=== PATIENT | male | born 1955 | race Caucasian/White ===

== ENCOUNTER 2018-01-19 07:45 | Day surgery (SDC) | payer BC, SELFPAY ==
--- NOTE | 2018-01-19 | PATH_ITS ---
[facility] Accession Number: [id number] . 01 Material submitted: . RECTAL POLYP . 02 Diagnosis: Rectum, Polyp, Biopsy: Benign lymphoid aggregate. I/01/20/2018 . 02 Electronically signed: . Lina Dominguez MD, Pathologist NPI- [id number] . 01 Gross description: . Received one formalin-filled container labeled with the patient's name, labeled rectal polyp. The specimen consists of a 0.3 cm portion of tissue, entirely submitted in one cassette. ([id number]) /FRR . 02 Pathologist provided ICD-10: K63.5 . 02 CPT . 557692 Performed at: 01 [facility] [address] [id number] MD uYri Roger MD Phone: [phone] Performed at: 02 [facility] [place] [address] [place], [place] [id number] MD Tom Sung MD Phone: [phone]
[2018-01-19 08:30] VITALS: BP 153/87; PULSE 59; RESP 16; TEMP 36.5; O2SAT 96; BMI 31.1
[2018-01-19] MEDS: SODIUM CHLORIDE 0.9% 1,000 ML 42 ML IV (08:44)
--- NOTE | 2018-01-19 09:20 | SUR.OPER ---
to endo from opd via cart respiration unlabored iv patent positioned per self for procedure
--- NOTE | 2018-01-19 09:26 | PM.CN ---
History of Present Illness Date Patient Seen: 01/19/18 Time Patient Seen: 09:27 Chief complaint: [id number] Reason for consult: Screening and history of polyps Requesting provider: Kervin Albright Narrative: Patient is a 62-year-old male with a history of polyps due for follow-up colonoscopy. He has no GI history. [facility] Social History household members: spouse Meds Home Medications Medication Instructions Recorded Confirmed Type No Known Home Medications 01/19/18 01/19/18 History Allergies Allergy/AdvReac Type Severity Reaction Status Date / Time ampicillin Allergy Unknown RASH Verified 01/19/18 08:29 Exam Vital Signs (past 8 hours): Oropharynx free of lesions Chest clear to auscultation percussion Cardiac exam reveals no S3 or murmur- 01/19/18 08:30 Temperature 97.7 F Pulse Rate 59 L Respiratory Rate 16 Blood Pressure 153/87 H Pulse Oximetry 96 Oxygen Delivery Method Room Air Assessment & Plan Plan: Assessment/Plan Narrative: Screening colonoscopy
--- NOTE | 2018-01-19 09:28 | PM.OP.ENDO ---
Operative Date/Time/Diagnoses Date of procedure: 01/19/18 Time of procedure: 09:28 Pre-op diagnosis: History of polyps Procedure & Clinicians Study performed: A. Colonoscopy Same procedure as scheduled: Yes Indications: History of polyps Surgeon: Kervin Albright Procedure Notes Procedure in detail: After informed consent was obtained the patient was placed left lateral decubitus position. Video colonoscope was introduced the rectum slowly advanced. Colon was quite tortuous and long but it eventually the scope was passed to the cecum is identified by IC valve and appendiceal orifice. Preparation was excellent. On slow withdrawal because was carefully examined. Scope was removed the patient tolerated procedure well Blood loss none Complications none Sedation: Fentanyl 100 mcg Versed 7 mg IV titration, total sedation time 29 min Findings: 1. 3 mm polyp in the rectum Jumbo biopsy removed completely 2. Otherwise negative colonoscopy to cecum Follow-up colonoscopy in 5 years due to history of polyps. Sedation minutes: 29 Specimen(s): other (Rectum) Complications: none Recommendations: Colonscopy in 5 years Follow up: as needed
--- NOTE | 2018-01-19 09:55 | SUR.OPER ---
tolerated procedure well
--- NOTE | 2018-01-19 09:55 | PM.OP.ENDO ---
Procedure & Clinicians Study performed: Colonoscopy Same procedure as scheduled: Yes Indications: History of polyps Surgeon: Kervin Albright Procedure Notes Procedure in detail: After informed consent was obtained patient was placed in left lateral decubitus position. The video colonoscope was into the rectum and slowly advanced to the cecum. On slow withdrawal mucosa was carefully examined. Colon was quite tortuous. Preparation was excellent. Scope was removed the patient tolerated procedure well Blood loss none Complications none Sedation: Fentanyl 100 mcg, Versed 7 mg IV titration. Total sedation time 29 min Findings rectum: 3 mm polyp Jumbo biopsy removed completely. Otherwise negative colonoscopy to cecum Sedation minutes: 29 Recommendations: Colonscopy in 5 years
[2018-01-19 09:56] VITALS: BP 131/86; PULSE 58; RESP 11; TEMP 36; O2SAT 93
[2018-01-19] MEDS: fentaNYL 250 MCG/5 ML INJ 100 MCG IV (09:59)
[2018-01-19] MEDS: MIDAZOLAM 5 MG/5 ML VIAL 7 MG IV (09:59)
[2018-01-19 10:01] VITALS: BP 139/83; PULSE 61; RESP 10; O2SAT 94
[2018-01-19 10:06] VITALS: BP 113/79; PULSE 66; RESP 17; TEMP 36; O2SAT 98
[2018-01-19 10:11] VITALS: BP 136/84; PULSE 60; RESP 19; O2SAT 96
[2018-01-19 10:21] VITALS: BP 147/92; PULSE 55; RESP 16; TEMP 36.1; O2SAT 97
== END 2018-01-19 10:39 | disposition home or self-care (01) ==
PROVIDERS: Internal Medicine Gastroenterology; Family Provider Family Medicine; PCP Family Medicine; Visit Provider Internal Medicine Gastroenterology
PROC: 0DJD8ZZ Inspection of Lower Intestinal Tract, Via Natural or Artificial Opening Endoscopic (ICD-10-PCS; CPT 45378; principal; 2018-01-19 09:00)
DX: Z12.11 Encounter for screening for malignant neoplasm of colon (principal); Z86.010 Personal history of colon polyps; K62.1 Rectal polyp
CPT/HCPCS: 45380; J2250; J3010

== ENCOUNTER → 2019-07-28 09:45 | Outpatient (CLI) | payer BC, SELFPAY ==
--- NOTE | 2019-07-28 | DI.RAD.S_ITS ---
PROCEDURE: XR TIBIA FUBULA RT 2V INDICATIONS: RIGHT LEG INJURY TECHNIQUE: 2 views of the tibia and fibula were acquired. COMPARISON: None. FINDINGS: Bones: No fractures or dislocations. No suspicious bony lesions. Soft tissues: No suspicious soft tissue calcifications or masses. IMPRESSION: No fracture Dictated by: Abdirizak Soriano M.D. on 07/28/2019 at 12:56 Approved by: Abdirizak Soriano M.D. on 07/28/2019 at 12:56
== END ==
PROVIDERS: PCP Student in an Organized Health Care Education/Training Program; Visit Provider Student in an Organized Health Care Education/Training Program
DX: S89.91XA Unspecified injury of right lower leg, initial encounter (principal); X58.XXXA Exposure to other specified factors, initial encounter
CPT/HCPCS: 73590

== ENCOUNTER → 2020-04-12 14:42 | Outpatient (CLI) | payer BC, SELFPAY ==
--- NOTE | 2020-04-12 | DI.RAD.S_ITS ---
PROCEDURE: XR FOOT LT MIN 3V INDICATIONS: left foot pain TECHNIQUE: 3 views of the foot were acquired. COMPARISON: None. FINDINGS: Bones: No fractures or dislocations. No suspicious bony lesions. Soft tissues: No tibiotalar joint effusion. Achilles tendon appears normal. IMPRESSION: No acute cardiopulmonary findings. If there is continued pain, followup exam or additional imaging such as MRI or CT could be performed for further assessment. Dictated by: Donna Corrales M.D. on 04/12/2020 at 15:47 Approved by: Donna Corrales M.D. on 04/12/2020 at 15:47
== END ==
PROVIDERS: PCP Student in an Organized Health Care Education/Training Program; Referring Provider Student in an Organized Health Care Education/Training Program; Visit Provider Student in an Organized Health Care Education/Training Program
DX: M79.672 Pain in left foot (principal)
CPT/HCPCS: 73630

== ENCOUNTER → 2020-06-01 08:39 | Outpatient (CLI) | payer BC, SELFPAY ==
--- NOTE | 2020-06-01 | DI.MRI.S_ITS ---
PROCEDURE: MRFOOT LT WO CON INDICATIONS: Pain in left toe(s) TECHNIQUE: Noncontrast sagittal T1 spin echo and T2 fast spin echo with fat saturation, long-axis T1 spin echo and T2 fast spin echo with fat saturation, short-axis T1 spin echo and T2 fast spin echo with fat saturation through the forefoot. COMPARISON: [facility], CR, XR FOOT LT MIN 3V, 04/12/2020, 14:38. FINDINGS: Image quality: Excellent. Bones and joints: There is subchondral bone marrow edema within the 1st metatarsal head along the metatarsophalangeal joint with mild associated subchondral sclerosis. Mild bone marrow edema is also demonstrated within the distal lateral aspect of the 1st proximal phalanx extending to the 1st interphalangeal joint. Associated mild cartilage thinning is demonstrated at the 1st metatarsophalangeal and interphalangeal joints. No discrete fracture lines are identified. No bony erosions. The sesamoid bones appear in expected positions, with mild edema in the lateral sesamoid. No intraosseous mass lesions. No joint effusions. Soft tissues: There is mild edema within the plantar musculature and lumbrical muscles along the 1st metatarsal distally extending to the great toe. The visualized plantar foot muscles otherwise demonstrate normal signal and bulk. Visualized flexor and extensor tendons appear intact, without tenosynovitis. The distal insertions of the peroneus brevis and longus tendons appear intact. The principal Lisfranc ligament appears intact. A small amount of intermetatarsal bursal fluid is demonstrated within the 1st metatarsal interspace. No soft tissue ganglion cysts. Sagittal images demonstrate no evidence for plantar plate tears. IMPRESSION: 1. Subchondral bone marrow edema within the 1st metatarsal head along the metatarsophalangeal joint likely represents degenerative changes secondary to overlying chondral degeneration. The differential includes sequelae of a nondepressed impaction fracture. Recommend correlation with clinical history. 2. Mild bone marrow edema within the 1st proximal phalanx laterally along the interphalangeal joint also likely represents degenerative changes. The imaging differential also includes a bone contusion although this is considered less likely. Correlation is also recommended with clinical history. 3. Mild edema within the plantar musculature along the 1st metatarsal extending into the great toe likely represents reactive changes versus sequelae of mild muscle strains. Dictated by: Yuri Alvarez M.D. on 06/03/2020 at 10:31 Approved by: Yuri Alvarez M.D. on 06/03/2020 at 10:46
== END ==
PROVIDERS: PCP Student in an Organized Health Care Education/Training Program; Referring Provider Student in an Organized Health Care Education/Training Program; Visit Provider Student in an Organized Health Care Education/Training Program
DX: M79.675 Pain in left toe(s) (principal)
CPT/HCPCS: 73718

== ENCOUNTER → 2020-08-27 14:49 | Outpatient (CLI) | payer BC, SELFPAY ==
--- NOTE | 2020-08-27 14:50 | DI.US.S_ITS ---
LIMITED ULTRASOUND OF LEFT BREAST: 08/27/2020 CLINICAL: Palpable left breast lump. Comparison is made to exam dated: 08/27/2020 mammogram [facility]. Ultrasound of the left breast 10 o'clock region was performed. There is a benign 3.2 cm x 4.8 cm x 1.2 cm oval lipoma with a circumscribed margin in the left breast at 10 o'clock posterior depth. This oval lipoma is hyperechoic. IMPRESSION: BENIGN There is no sonographic evidence of malignancy. The 3.2 cm x 4.8 cm x 1.2 cm oval lipoma in the left breast is consistent with a lipoma and is benign. This exam was interpreted at Station ID: [id number]. Electronically Signed By: Teo Mueller acr/:08/27/2020 16:26:18 letter sent: Clinical Evaluation Ultrasound BI-RADS: 2 Benign
--- NOTE | 2020-08-27 14:50 | DI.MG.S_ITS ---
MALE BILATERAL DIGITAL DIAGNOSTIC MAMMOGRAM 3D/2D: 08/27/2020 CLINICAL: Left breast lump. No prior exams were available for comparison. No significant masses, calcifications, or other findings are seen in either breast. IMPRESSION: INCOMPLETE: NEEDS ADDITIONAL IMAGING EVALUATION There is no abnormality seen in the left breast to correspond with the area of clinical concern and palpable abnormality at 10 o'clock, however, ultrasound is recommended. US will be performed and dictated separately. This exam was interpreted at Station ID: [id number]. NOTE: For mammograms, a report in lay terms will be sent to the patient. Approximately 15% of breast malignancies will not be visualized mammographically. In the management of a palpable breast mass, a negative mammogram must not discourage biopsy of a clinically suspicious lesion. Electronically Signed By: eTo Mueller acr/:08/27/2020 15:22:56 letter sent: Additional Imaging Needed ACR BI-RADS Category 0: Incomplete [id number]
== END ==
PROVIDERS: PCP Student in an Organized Health Care Education/Training Program; Referring Provider Student in an Organized Health Care Education/Training Program; Visit Provider Student in an Organized Health Care Education/Training Program
DX: R92.8 Other abnormal and inconclusive findings on diagnostic imaging of breast (principal); D17.79 Benign lipomatous neoplasm of other sites
CPT/HCPCS: 76642; 77066; G0279

== ENCOUNTER → 2024-05-25 06:27 | Outpatient (CLI) | payer MEDICARE, BC, SELFPAY ==
[2024-05-25 08:42] LABS: Prostate Specific Antigen 3.84 ng/mL (0.10-4.00)
== END ==
PROVIDERS: PCP Family Medicine; Referring Provider Urology; Visit Provider Urology
DX: N40.1 Benign prostatic hyperplasia with lower urinary tract symptoms (principal); N13.8 Other obstructive and reflux uropathy; Z87.898 Personal history of other specified conditions
CPT/HCPCS: 36415; 84153

== ENCOUNTER → 2025-05-11 11:19 | Outpatient (CLI) | payer MEDICARE, BC, SELFPAY | PROVIDERS: PCP Family Medicine; Visit Provider Urology | DX: N40.1 Benign prostatic hyperplasia with lower urinary tract symptoms (principal); N13.8 Other obstructive and reflux uropathy | CPT/HCPCS: 87086 ==

== ENCOUNTER 2025-05-22 07:32 | Day surgery (SDC) | payer MEDICARE, BC, SELFPAY ==
[2025-05-02 12:58] VITALS: BMI 31.8
[2025-05-22] VITALS (13 sets, daily range): BP systolic 135–189; BP diastolic 71–104; PULSE 56–72; RESP 12–18; TEMP 36.1–36.7; O2SAT 93–99; BMI 33.3
--- NOTE | 2025-05-22 | PATH_ITS ---
[facility] Accession Number: [id number] No. of containers..01 Tissue . 01 Material submitted: . prostate - PROSTATE CHIPS . 01 Diagnosis: PROSTATE CHIPS (WEIGHT 20 GRAMS): Benign prostatic tissue with glandular and stromal hyperplasia. [facility] 06/01/2025 1057 Local . 01 Electronically signed: . Gloria Baker MD, Pathologist NPI- [id number] . 01 Gross description: . Received in formalin with two patient identifiers and prostate chips, is a 20 gram, 7.5 x 5.0 x 2.3 cm aggregate of brown, rubbery tissue fragments. Approximately 60% of the specimen is submitted in cassettes A1-A8. (JF:[id number]) /[facility] 05/29/2025 1039 Local . 01 Pathologist provided ICD-10: N40.1 . 01 CPT . 091862 Specimen Comment: A courtesy copy of this report has been sent to [facility] Pathology Performed at: 01 [facility] [address], [place], [place] [id number] MD Yuri Roger MD Phone: [phone]
[2025-05-22] MEDS: ACETAMINOPHEN 325 MG TABLET 975 MG PO (07:48)
--- NOTE | 2025-05-22 09:03 | PM.PREOP ---
Pre-operative Note COVID-19 COVID-19 status: Not tested Interval Note History & Physical reviewed/Exam performed by Physician: Yes Changes to H&P: No
[2025-05-22] MEDS: levoFLOXacin 500 MG/100 ML PIGGYBACK 100 MG IV (09:30)
--- NOTE | 2025-05-22 09:42 | SUR.OPER ---
Lithotomy on padded OR bed, head on pillow, arms secured on padded arm boards at <90 degrees abduction. Legs secured in padded yellow fins stirrups. All pressure points padded and protected
--- NOTE | 2025-05-22 09:52 | SUR.OPER ---
Lithotomy on padded OR bed, head on pillow, arms secured on padded arm boards at <90 degrees abduction. Legs secured in padded yellow fins stirrups. final positioning done by provider
--- NOTE | 2025-05-22 11:05 | P.OP_ITS ---
Operative Date/Time/Diagnoses Date of procedure: 05/22/25 Time of procedure: 09:45 Pre-op diagnosis: Benign prostatic hyperplasia with lower urinary tract symptoms Post-op diagnosis: same Procedure & Clinicians Procedure: Cystoscopy Aquablation Same procedure(s) as scheduled: Yes Indications: 69 y/o M noted to have symptoms consistent w/ BPH and LUTS that are currently managed w/ Alfuzosin 10mg daily. Discussed treatment options to include observation vs the possible addition of Finasteride 5mg daily (discussed possible side effects to include decreased libido, worsening erectile dysfunction, loss of ejaculate volume as well as painful breast development or nipple tenderness), or a lower urinary tract evaluation prior to a bladder o utlet procedure (already completed by Dr. Lozano and Dr. Horn). Discussed that he otherwise would be a candidate for Aquablation. Discussed risks of the procedure to include but not limited to pain, bleeding, infection, injury to urethra/bladder/either ureteral orifice, clot retention, irritative voiding symptoms for several months following the procedure, urinary incontinence, erectile dysfunction, retrograde ejaculation, need for open emergent repair of any bladder or ureteral injuries, urethral stricture or bladder neck contracture development, need for repeat procedures. He has now decided to move forward with his Aquablation procedure. Of note, he does take a baby ASA daily for preventative health. He does not have a Cardiac history. Surgeon: Mario Polanco Assisted?: No Anesthesia Type: General Operative Notes Findings: Coaptating lateral prostatic lobes, moderate sized anterior intravesical median lobe Closure Type: not applicable Specimen(s): other (prostate chips) Applied: catheter Estimated Blood Loss (mL): 50 Blood products transfused: none Procedure in detail: After informed consent was obtained, the patient was identified brought to the operating room where he was placed in his supine position on the table.? Once there anesthesia was induced and maintained.? Ensuring an adequate level of anesthesia the patient was transitioned to the lithotomy position where after time-out he was prepped.? After prepping, ensuring an adequate level of anesthes ia, administration IV antibiotics and time-out 60 cc of ultrasound gel was instilled within the rectum and the ultrasound probe which had been attached to the TRUS stepper which was attached to the TRUS stepper articulating arm which was secured to the bed was advanced into the rectum under direct vision via the ultrasound.? The ultrasound probe was then aligned and confirmation made that the prostate was centered and aligned in both the sagittal and transverse views.? The bladder neck, verumontanum, central and transitional zones were identified.? With the ultrasound in place and adjusted the patient was then draped in a sterile fashion. With the patient draped the 24 [place] aqua beam handpiece was then inserted through the urethra and advanced into the bladder.? Cystoscopy was then perf ormed and no concerning bladder mass or lesions were noted.? Bilateral ureteral orifices were noted to be orthotopic in nature.? As the cystoscope was advanced the level of the sphincter, verumontanum, bladder neck were all identified via ultrasound and under direct vision.? The aqua beam hand place was then secured to the handpiece articulating arm which had been secured to the bed.? The Aquablation handpiece and TRUS probe were confirmed to be parallel and colinear.? Confirmation was then made that the aqua beam handpiece and nozzle was centered and anterior to the bladder neck.? The cystoscope was then retracted under direct vision in the sphincter and verumontanum were identified.? The tip of the cystoscope was then placed proximal to the external sphincter.? Compression was applied with the TRUS probe to the prostate.? The alignment of the TRUS probe and aqua beam handpiece was once again confirmed.? Horizontal alignment of the handpiece water jet was then performed.? With these adjustments made, the treatment zones were then planned using real-time ultrasound.? In the largest transverse view of the prostate the depth and radial angles were determined and set again in the transverse view of the prostate.? In the longitudinal and sagittal view the Aquablation nozzle was identified and its position registered with the software and robot.? The treatment contours were then determined and adjusted to reflect the intended margins of resection.? Following our plan confirmation, the Aquablation resection treatment was started.? A 2nd pass was then completed in similar fashion after the 1st pass had been completed.? At this point, the Aqua hand piece was removed from the urethra. The 26Fr resectoscope was then inserted into the urethra and cystoscopy was repeated.? The Elik leader writer was utilized to evacuate the blood clots from the bladder.? The bladder neck was then resected using the bipolar Gyrus loop.? Bilateral ureteral orifices were again identified and noted to be intact at case end.? Hemostasis was obtained and noted to be excellent at case end.? The resectoscope was then removed and a 24Fr Gwen 3-way hematuria catheter was inserted through the urethra and into the bladder.? 45cc of sterile water was utilized for balloon insufflation.? Efflux was noted to be clear at case end.? Anesthesia was reversed, he was extubated in the OR and transferred to the PACU in stable condition for recovery. Complications: none Post-operative Condition: stable Disposition: PACU Plan for aftercare: Will continue to run CBI for a few hours to evaluate the efflux from his catheter.? Should it remain relatively clear and with minimal blood clots, will discharge home with catheter in place and have him return to Urology clinic in 2 days for a voiding trial.? Should his efflux remain red or have significant clot burden, will admit overnight for observation and continued CBI.
[2025-05-22] MEDS: LACTATED RINGERS 1,000 ML 42 ML IV (11:16)
--- NOTE | 2025-05-22 17:30 | SUR.PHASEII ---
Seen and assessed by Dr Polanco. CBI continued and patient transferred to floor for continued monitoring.
[2025-05-22] MEDS: LACTATED RINGERS 1,000 ML 125 ML IV (17:36)
[2025-05-22] MEDS: ATORVASTATIN 20 MG TABLET PO (20:00)
[2025-05-22] MEDS: MELATONIN 3 MG TABLET 9 MG PO (21:01)
[2025-05-23] MEDS: ACETAMINOPHEN 325 MG TABLET 975 MG PO (00:30)
[2025-05-23] MEDS: LACTATED RINGERS 1,000 ML 125 ML IV (01:35)
--- NOTE | 2025-05-23 07:34 | PM.PNPO.1 ---
Subjective Subjective Date Patient Seen: 05/23/25 Time Patient Seen: 07:35 Interval history: 69 y/o M w/ BPH and bothersome LUTS who strongly desired surgical management via an Aquablation procedure.? He is now POD 1 and tolerated the aforementioned procedure without any complications and had an uneventful night in the hospital.? He was tolerating a regular diet without nausea or vomiting and his pain remained well controlled.? He remained on traction overnight due to continued bleeding. Exam Vital Signs (past 8 hours): Oxygen Delivery Method Room Air Oxygen Flow Rate 0 Narrative Exam Narrative: GEN:? Alert and oriented X3.? No acute distress.? Well-nourished. EYES:? PERRLA, EOMI. HENT:? Moist mucus membranes, no scleral icterus, normal neck ROM. RESP:? Unlabored breathing, equal rise and fall of chest bilaterally, no cyanosis appreciated. CV:? No peripheral edema, unremarkable heart rate. ABD:? Soft, non-tender, non-distended, no palpable masses. :? Moody catheter secured and draining light pink urine without clots. EXT:? No edema, clubbing or cyanosis. SKIN:? No rashes or lesions. NEURO:? No focal neurologic deficits, CN II-XII grossly intact. PSYCH:? Cooperative, appropriate mood and affect. [facility] Medical History Elevated PSA Slow urinary stream BPH w urinary obs/LUTS History of elevated prostate specific antigen (PSA) Hypertension Surgical History History of circumcision History of hernia repair Family History Father Cancer Stroke Hypertension Family/Other Diabetes mellitus Social History marital status: number of children: 2 household members: spouse occupational status: previously employed Smoking Status: Never smoker alcohol intake: current caffeine: Yes Assessment & Plan Post-op Postoperative Procedures: Procedures Operation Date: 05/22/25 09:15 Actual Procedure Side Surgeon p Aquablation Mario Polanco DO Postoperative day: 1 Postoperative status: doing well Postoperative status narrative: 69 y/o M w/ h/o BPH and bothersome LUTS who strongly desired surgical management via an Aquablation procedure. He is POD 1 and is recovering as expected. His moody catheter was taking off traction this AM and his CBI rate drastically decreased. - Will continue to hydrate well - Will have nursing team turn his CBI off at 1100 - Will check on him around lunch, should his efflux remain clear will discharge home. Time Spent With Patient Time with patient: 15-24 minutes Quality VTE Deep Vein Thrombosis/Pulmonary Embolism Present on Admission: No
[2025-05-23 07:54] VITALS: BP 155/67; PULSE 65; RESP 18; TEMP 36.6; O2SAT 98
[2025-05-23] MEDS: ATORVASTATIN 20 MG TABLET PO (09:11)
--- NOTE | 2025-05-23 13:16 | PC.NURSE ---
Pt resting at intervals. CBI w/light olga colored urine noted. CBI clamped at 1100; MD back to see and D/C orders received. CBI instructions given w/understanding. (60cc syringe & NS provided.) SL D/C intact. Pt escorted by staff via W/C to waiting vehicle D/C in stable status
--- NOTE | 2025-05-23 13:59 | CM.DANOTE ---
Reviewed EMR and team rounds for pt's medical status and updates. This FAMILY DEVELOPMENT SPECIALIST was unable to meet f/f with pt prior to his d/c today due to unit triage needs. Pt lives independently with his spouse in their own home in [place]. He was medically cleared for home d/c today, and his spouse was at bedside to transport him home. No CM d/c needs were identified at this time. Payor: Medicare Attending: Dr. Polanco Pt is a 69 year-old M post-op day 1 from an Aquablation procedure secondary to prostate resection. He has a hx of benign prostatic hyperplasia with lower urinary tract issues. Pt did well postoperatively, pain was well controlled, and he will plan to f/u OP with Dr. Polanco in the next few weeks. Discharge Planning/Care Management CM Discharge Assessment Start: 05/22/25 17:01 Freq: Status: Active Protocol: Document 05/23/25 13:57 DPL (Rec: 05/23/25 13:59 DPL [id number]) Discharge Planning Assessment Assigned Discharge AMANDEEP Lugo Claim Examiner Insurance Medicare Advance Directives? No History Provided By Medical Record Has Patient been No admitted in last 30 days? Prior Living House Arrangements Household Members spouse Type of Drives own vehicle transporation used prior to admit Independent with ADL Yes 's Is patient alert and Yes oriented? Comment N/A Caregiver for No Another Comment N/A Comment No identified home d/c needs at this time. Pt will f/u OP with Dr. Polanco. Barriers to No Discharge Discharge Plan Home Whiteboard Updated Yes in Patient Room with name and ext. # of Exhibit Technician Review Status In Process Please Provide Date 05/23/25 Initial DC Assessment Was Performed Pre-Anesthesia Assessment Start: 05/02/25 12:57 Freq: Status: Active Protocol: Document 05/02/25 12:58 LB (Rec: 05/02/25 13:02 LB [id number]) Pre-Anesthesia Assessment Information obtained Chart review via Height 182.88 cm Weight 106.594 kg Body Mass Index (BMI 31.8 ) Has patient seen a Yes specialist in last 12 months? If yes, specialist Urologist seen Patient hospitalized No or treated in the ER in the last year? Does patient have None history of Has patient ever had No a blood clot? Is patient on Yes anticoagulant therapy? If yes, Aspirin 81mg daily. anticoagulant name Patient advised to Yes hold this medication prior to surgery? If yes, please 7 days preop by surgeon. describe Does patient have a No office services manager? Was cardiac testing No performed? Does patient have No history of a pacemaker/ICD? Cardiac Clearance Not Applicable Received Does patient have None history of Does patient use No oxygen at home? Does patient have No history of Sleep Apnea? Does patient have None history of Does patient have a No neurostimulator or pain stimulator? Does patient have No history of GERD? Does patient have No history of kidney/ liver problems/ disease? Does patient have No Diabetes? Insulin pump or No continuous glucose monitor? GLP-1? No Does patient have No history of thyroid problems? Is patient ? No Is patient No ? Does patient have No history of cancer? Alcohol intake 0 drinks per day Anesthesia Review No Requested
== END 2025-05-23 13:10 | disposition home or self-care (01) ==
LOC: OR 14:56 → AC 16:47
PROVIDERS: PCP Family Medicine; Referring Provider Family Medicine; Visit Provider Urology
PROC: 0VT08ZZ Resection of Prostate, Via Natural or Artificial Opening Endoscopic (ICD-10-PCS; CPT 0421T; principal; 2025-05-22 09:15)
DX: N40.1 Benign prostatic hyperplasia with lower urinary tract symptoms (principal); N13.8 Other obstructive and reflux uropathy; I10 Essential (primary) hypertension; Z79.82 Long term (current) use of aspirin
CPT/HCPCS: 0421T; C2596; J1100; J1885; J1956; J2405; J2704; J3010; J7120

== ENCOUNTER → 2025-05-24 14:55 | Outpatient (CLI) | payer MEDICARE, BC, SELFPAY ==
[2025-05-22 17:01] VITALS: BMI 33.3
== END ==
PROVIDERS: PCP Family Medicine; Visit Provider Urology
DX: R39.9 Unspecified symptoms and signs involving the genitourinary system (principal)
CPT/HCPCS: 87086

== ENCOUNTER → 2025-07-04 08:58 | Outpatient (CLI) | payer MEDICARE, BC, SELFPAY ==
[2025-05-22 17:01] VITALS: BMI 33.3
== END ==
PROVIDERS: PCP Family Medicine; Visit Provider Urology
DX: N40.1 Benign prostatic hyperplasia with lower urinary tract symptoms (principal); N13.8 Other obstructive and reflux uropathy; R97.20 Elevated prostate specific antigen [PSA]
CPT/HCPCS: 87086